=== PATIENT | male | born 1980 | race Caucasian/White ===

== ENCOUNTER 2018-03-11 19:50 | Emergency (ER) | payer SELFPAY ==
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
[2018-03-11] MEDS ORDERED: Ibuprofen 800 MG TAB ONE (21:04)
== END 2018-03-11 21:05 | disposition home or self-care (01) ==
LOC: MADERS 19:50
DX: S60.221A Contusion of right hand, initial encounter (principal); F17.200 Nicotine dependence, unspecified, uncomplicated; Y04.0XXA Assault by unarmed brawl or fight, initial encounter

== ENCOUNTER 2019-08-04 18:09 | Emergency (ER) | payer OTHER, SELFPAY | END 2019-08-04 18:33 | disposition home or self-care (01) | LOC: MADERS 18:09 | DX: K04.7 Periapical abscess without sinus (principal); K02.9 Dental caries, unspecified; F17.200 Nicotine dependence, unspecified, uncomplicated | CPT/HCPCS: 99283 ==

== ENCOUNTER 2019-08-08 13:10 | Emergency (ER) | payer OTHER, SELFPAY ==
[2019-08-08] MEDS ORDERED: Acetaminophen 500 MG TAB ONE (15:26)
[2019-08-08] MEDS ORDERED: cefTRIAXone\\ROCEPHIN 1 GM VIAL ONE (15:26)
[2019-08-08] MEDS ORDERED: Lidocaine 1% 20 ML MDV ONE (15:26)
== END 2019-08-08 15:50 ==
LOC: MADERS 13:10 → EEVIPCON 13:10 → MADERS 15:50
DX: K04.7 Periapical abscess without sinus (principal); L03.211 Cellulitis of face; F17.200 Nicotine dependence, unspecified, uncomplicated
CPT/HCPCS: 96372; 99283; J0696; J2001

== ENCOUNTER 2020-05-09 19:33 | Emergency (ER) | payer OTHER, SELFPAY ==
[2020-05-09] MEDS ORDERED: Sodium Chloride 0.9% 1,000 ML ONE ×2 (20:10→20:43)
[2020-05-09 20:12] LABS: #Basophils 0.1 thou/uL (0.0-0.2); #Eosinphils 0.2 thou/uL (0.0-0.7); #Lymphocytes 2.7 thou/uL (1.20-3.40); #Monocytes 0.8 thou/uL (0.11-0.59); #Neutrophils 9.1 thou/uL (1.40-6.50); %Basophils 1.1 % (0.0-1.0); %Eosinophils 1.6 % (0.0-10.0); %Lymphocytes 20.9 % (21.0-51.0); %Monocytes 6.4 % (0.0-10.0); %Neutrophils 70.1 % (42.0-75.0); Hemoglobin 14.7 g/dL (14.0-18.0); Mean Corpuscular HGB CONC 32.5 g/dL (32.0-36.0); Mean Corpuscular Hemoglobin 29.2 pg (27.0-31.0); Mean Corpuscular Volume 89.7 fL (78.0-98.0); Mean Platelet Volume 6.5 fL (7.4-10.4); Platelet Count 303 thou/uL (130-400); RBC Distribution Width 12.6 % (11.5-14.5); Red Blood Cell (RBC) Count 5.05 mill/uL (4.70-6.10)
[2020-05-09 20:14] LABS: INR-International Normal Ratio 0.9; PTT 25.8 sec (22.9-36.1); Prothrombin Time 12.5 sec (12.0-14.7)
[2020-05-09 20:26] LABS: ALT (SGPT) 40 U/L (8-55); AST (SGOT) 32 U/L (5-34); Albumin 4.4 g/dL (3.5-5.0); Alkaline Phosphatase 80 U/L (40-110); Anion Gap 16 mmol/L (10-20); BUN (Urea Nitrogen) 20 mg/dL (8.9-20.6); Bilirubin, Total 0.6 mg/dL (0.2-1.2); CK (CPK) 768 U/L (30-200); Calc. Creatinine Clearance 0 mL/min (70-130); Carbon Dioxide 23 mmol/L (22-29); Chloride 105 mmol/L (98-107); Estimated GFR-MDRD 75; Globulin 2.7 g/dL (2.4-3.5); Glucose 125 mg/dL (70-105); Lipase 19 U/L (8-78); Potassium 3.5 mmol/L (3.5-5.1); Protein, Total 7.1 g/dL (6.0-8.3); Sodium 140 mmol/L (136-145)
[2020-05-09] MEDS ORDERED: Ketorolac Tromethamine 30 MG/ML VIAL ONE (20:45)
== END 2020-05-09 21:19 | disposition home or self-care (01) ==
LOC: MADERS 19:33
DX: M25.532 Pain in left wrist (principal); E86.0 Dehydration; F17.290 Nicotine dependence, other tobacco product, uncomplicated; X30.XXXA Exposure to excessive natural heat, initial encounter
CPT/HCPCS: 80053; 82550; 83690; 84484; 85025; 85610; 85730; 93005; 96361; 96374; J1885; J7050

== ENCOUNTER 2020-06-30 18:02 | Emergency (ER) | payer SELFPAY | END 2020-06-30 18:43 | disposition home or self-care (01) | LOC: MADERS 18:02 | DX: H61.22 Impacted cerumen, left ear (principal) | CPT/HCPCS: 99282 ==

== ENCOUNTER 2021-02-14 09:21 | Emergency (ER) | payer OTHER, SELFPAY ==
[2021-02-14 22:42] LABS: SARS-CoV-2 PCR by NAA Not Detected (NotDetected)
== END 2021-02-14 11:04 | disposition home or self-care (01) ==
LOC: MADERS 09:21
DX: U07.1 COVID-19 (principal); F17.210 Nicotine dependence, cigarettes, uncomplicated
CPT/HCPCS: 87635; 87804; 99283; U0003; U0005